=== PATIENT | male | born 1985 | race Caucasian/White ===

== ENCOUNTER 2019-05-12 00:44 | Emergency (ER) | payer OTHER ==
[~2019-05-12] VITALS: Ht 177.8 cm; Wt 122.9 kg
[2019-05-12 00:51] VITALS: Ht 177.8 cm; Wt 122.9 kg
[2019-05-12 03:43] LABS: CALCIUM 8.8 mg/dL (8.5-10.1); CHLORIDE SERUM 103 mmol/L (98-107); CREATININE SERUM 0.8 mg/dL (0.7-1.3); GFR1 > 60 mL/min; GLUCOSE SERUM 117 mg/dL (74-106); POTASSIUM SERUM 4.2 mmol/L (3.5-5.1); SODIUM SERUM 138 mmol/L (136-145)
[2019-05-12 03:49] LABS: ALBUMIN 3.5 g/dL (3.4-5.0); ALKALINE PHOSPHATASE 79 U/L (46-116); ALT/SGPT 199 U/L (16-63); AST/SGOT 57 U/L (15-37); BILIRUBIN TOTAL 0.17 mg/dL (0.20-1.00); TOTAL PROTEIN, SERUM 7.6 g/dL (6.4-8.2)
[2019-05-12 03:51] LABS: PLATELET COUNT 309 x10^3mcL (130-400); RED CELL DISTRIBUTION WIDTH 12.8 % (11.5-14.5)
[2019-05-12 05:58] VITALS: BP 115/62
== END 2019-05-12 05:58 | disposition home or self-care (01) ==
LOC: ED 00:44
PROVIDERS: Specialist
DX: J01.90 Acute sinusitis, unspecified (principal); E78.00 Pure hypercholesterolemia, unspecified
CPT/HCPCS: J2405; J3010; Q9967

== ENCOUNTER 2019-09-25 02:04 | Emergency (ER) | payer OTHER ==
[~2019-09-25] VITALS: Ht 180.3 cm; Wt 123.4 kg
[2019-09-25 02:14] VITALS: Ht 180.3 cm; Wt 123.4 kg
[2019-09-25 05:00] VITALS: BP 118/81
== END 2019-09-25 05:00 | disposition home or self-care (01) ==
LOC: ED 02:04
DX: R51 Headache (principal); E78.00 Pure hypercholesterolemia, unspecified